=== PATIENT | male | born 1980 | race Caucasian/White ===

== ENCOUNTER 2017-08-31 16:30 | Emergency (ER) | payer OTHER ==
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
[2017-08-31] MEDS ORDERED: DIPHTH/TETANUS/ACEL. PERTUSSIS IM ONE (16:45)
[2017-08-31 17:09] LABS: PLATELET COUNT, AUTOMATED 228 K/uL (150-450)
[2017-08-31] MEDS ORDERED: IOPAMIDOL 76% 100 ML INFUS BTL 100 ML ONE (17:12)
[2017-08-31] MEDS ORDERED: NS 0.9% 150 ML BAG 150 ML ONE (17:12)
[2017-08-31 17:17] LABS: INR 0.99
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
[2017-08-31 19:26] VITALS: BP 148/88
== END 2017-08-31 19:26 | disposition home or self-care (01) ==
LOC: ER 16:48
DX: S40.012A Contusion of left shoulder, initial encounter (principal); S40.011A Contusion of right shoulder, initial encounter; S16.1XXA Strain of muscle, fascia and tendon at neck level, initial encounter; S09.90XA Unspecified injury of head, initial encounter; V89.2XXA Person injured in unspecified motor-vehicle accident, traffic, initial encounter
CPT/HCPCS: 70450; 71260; 72125; 73030; 73564; 73590; 74177; 80320; 82150; 83605; 83690; 85025; 85610; 85730; 90715; 99284; L3982; Q9967; 82040; 82247; 82310; 82374; 82435; 82565; 82947; 84075; 84132; 84155; 84295; 84450; 84460; 84520; 90471